=== PATIENT | female | born 1970 | race Caucasian/White ===

== ENCOUNTER 2017-09-09 12:49 | Emergency (ER) | payer OTHER ==
[2017-09-09] MEDS ORDERED: ONDANSETRON 4 MG TAB.RAPDIS PO ONE (13:46)
[2017-09-09] MEDS ORDERED: HYDROMORPHONE HCL INJ/PF 2 MG/ML AMPULE IM ONE (13:46)
[2017-09-09] MEDS ORDERED: LIDOCAINE 1% INJ-PF (10 MG/ML) 30 ML SDV INJ ONE (13:51)
--- NOTE | 2017-09-09 13:58 | ER Document Report ---
ED Medical Screen (RME) - General Chief Complaint: Abscess Stated Complaint: BOIL Time Seen by Provider: 09/09/17 13:41 Mode of Arrival: Ambulatory Information source: Patient TRAVEL OUTSIDE OF THE [place] IN LAST 30 DAYS: No - HPI Patient complains to provider of: abscess Notes: 09/09/17 13:56 Patient is here with complaint of abscess to the left buttocks. She was seen in urgent care yesterday and was determined that he did not need drained at that time. She was placed on clindamycin. She did warm soaks yesterday. She went back to the urgent care today and it has gotten larger and more painful so they sent her to the emergency department. She states that she had a fever yesterday, but denies any fever today. Physical exam: Large fluctuant abscess with redness to the left buttock. No rectal involvement. Tenderness to palpation. No drainage. An initial examination was made on the patient as part of the triage process, and it was determined a more comprehensive evaluation was necessary. Initial labs were ordered and patient was transferred to another provider in the ED who assumed care and finished evaluation and plan. - Related Data Allergies/Adverse Reactions: No Known Allergies Allergy (Verified 09/09/17 12:55) Physical Exam - Vital signs Vitals: Temp Pulse Resp BP Pulse Ox 98.1 F 102 H 24 H 129/85 H 98 09/09/17 12:53 09/09/17 12:53 09/09/17 12:53 09/09/17 12:53 09/09/17 12:53 Course - Vital Signs Vital signs: Temp Pulse Resp BP Pulse Ox 98.1 F 102 H 24 H 129/85 H 98 09/09/17 12:53 09/09/17 12:53 09/09/17 12:53 09/09/17 12:53 09/09/17 12:53
--- NOTE | 2017-09-09 14:40 | ER Document Report ---
HPI - HPI Pain Level: 4 Notes: Patient is a 47-year-old female no significant past medical history who presents to the ED complaining of an abscess to her left buttock 4 days. Patient states that she was at the urgent care initially and they placed her on antibiotics, and when again today as it doubled in size and was told to come the emergency department for incision and drainage. She denies any drug allergies or history of MRSA. She is currently on clindamycin. She is eating and drinking without difficulties. She is urinating normally and having normal bowel moods. No other concerns or complaints at this time. She has not noticed any streaks or purulent discharge. Denies any headache, fever, neck pain, URI, sore throat, chest pain, palpitations, syncope, cough, shortness of breath, wheeze, dyspnea, abdominal pain, nausea/vomiting/diarrhea, urinary retention, dysuria, hematuria, or rash. - ROS Systems Reviewed and Negative: Yes All other systems reviewed and negative Past Medical History - General Information source: Patient - Social History Smoking Status: Current Every Day Smoker Family History: Reviewed & Not Pertinent Patient has suicidal ideation: No Patient has homicidal ideation: No Renal/ Medical History: Denies: Hx Peritoneal Dialysis Vertical Provider Document - CONSTITUTIONAL Agree With Documented VS: Yes Notes: PHYSICAL EXAMINATION: LUNGS: Breath sounds clear to auscultation bilaterally and equal. No wheezes rales or rhonchi. HEART: Regular rate and rhythm without murmurs, rubs, gallops. ABDOMEN: Soft, nontender, nondistended abdomen. No guarding, no rebound. No masses appreciated. Normal bowel sounds present. No CVA tenderness bilaterally. Buttock: + abscess with fluctuance left buttock 12-14x7cm does not involve the anus/rectum. No streaks or purulent discharge. + tenderness. Extremities: No cyanosis, clubbing, or edema b/l. Peripheral pulses 2+. Capillary refill less than 3 seconds. PSYCH: Normal mood, normal affect. SKIN: Warm, Dry, normal turgor, no rashes or lesions noted. - INFECTION CONTROL TRAVEL OUTSIDE OF THE [place] IN LAST 30 DAYS: No Course - Re-evaluation Re-evalutation: 09/09/17 15:24 Patient is an afebrile, well-hydrated, 39-year-old female who presents to the ED with an abscess to the left buttock. Vitals are acceptable. PE is otherwise unremarkable. Incision and drainage was performed successfully without any complications. Packing was placed. Patient tolerated procedure well without any complications. Patient has no significant tachycardia, tachypnea, or hypoxia. She is currently on clindamycin. Wound culture was obtained. Wound dressing was placed and wound instructions reviewed. Recheck with PCM in 2-3 days. Return to the ED with any worsening/concerning symptoms otherwise as reviewed discharge. Patient is in agreement. - Vital Signs Vital signs: Temp Pulse Resp BP Pulse Ox 98.1 F 102 H 24 H 129/85 H 98 09/09/17 12:53 09/09/17 12:53 09/09/17 12:53 09/09/17 12:53 09/09/17 12:53 Procedures - Incision and Drainage Left Buttock Time completed: 13:10 - pt tolerated proc well, no complications Type: Simple Anesthetic type: 1% Lidocaine mL's of anesthetic: 18 Blade size: 11 I&D procedure: Iodoform packing placed, Sterile dressing applied, Other - chlorhexadine Incision Method: Incision made by scalpel Amount/type of drainage: copious purulent Discharge - Discharge Clinical Impression: Abscess Condition: Stable Disposition: HOME, SELF-CARE Instructions: Abscess ([facility]), Post Incision and Drainage Additional Instructions: Do not shower or bathe for 24 hours. After 24 hours she may shower but no submersion of the wound under water. Keep the original dressing on the wound for 24 hours unless the drainage soaks through. Change the dressing daily thereafter and use a small amount of triple antibiotic ointment over the open wound. Return to the ED and/or your PCM in 2-3 days for recheck and continue direction for wound packing. Monitor for any signs of worsening pain or redness , streaks, and/or fever. Return to the ED if noticing any of the above symptoms or as needed. Take medications as directed. Forms: Elevated Blood Pressure, Smoking Cessation Education, Return to Work Referrals: LUCIANA SHEFFIELD, CHRISTELLE-C [Primary Care Provider] - 09/12/17
[2017-09-09 15:21] VITALS: BP 143/86
== END 2017-09-09 15:35 | disposition home or self-care (01) ==
LOC: ER 12:49
PROC: 0H98XZZ Drainage of Buttock Skin, External Approach (ICD-10-PCS; principal; 2017-09-09)
DX: L02.31 Cutaneous abscess of buttock (principal); F17.200 Nicotine dependence, unspecified, uncomplicated
CPT/HCPCS: 99283; 96372; 87070; 87205; 87075; 87077; 10060; S0119; J3490; J1170

== ENCOUNTER 2018-06-19 17:08 | Emergency (ER) | payer MEDICAID, OTHER ==
[2018-06-19] MEDS ORDERED: RINGERS SOLUTION,LACTATED 1,000 ML IV ONE (17:49)
[2018-06-19] MEDS ORDERED: DIPHENHYDRAMINE HCL 50 MG/ML VIAL IV ONE (17:49)
[2018-06-19] MEDS ORDERED: METOCLOPRAMIDE HCL INJ/PF 10 MG/2 ML SDV IV ONE (17:49)
--- NOTE | 2018-06-19 17:51 | ER Document Report ---
ED Medical Screen (RME) - General Chief Complaint: Near Syncope Stated Complaint: VOMITING Time Seen by Provider: 06/19/18 17:45 Primary Care Provider: LUCIANA SHEFFIELD FNP-C [Primary Care Provider] - Follow up as needed Mode of Arrival: Medic Information source: Patient Notes: This is a 47-year-old female brought in by EMS after near syncopal episode at work. Patient reported having multiple episodes of vomiting associated with nausea. Patient denies fever but states she has had cough, congestion for the past week. Patient is not on any medicines and has no medical problems. History of C-sections. She has no primary care provider. No allergies to medicines. Patient states she still feels nauseated but stopped vomiting after given Zofran by EMS. TRAVEL OUTSIDE OF THE [place] IN LAST 30 DAYS: No - Related Data Allergies/Adverse Reactions: No Known Allergies Allergy (Verified 09/09/17 12:55) Past Medical History Renal/ Medical History: Denies: Hx Peritoneal Dialysis Physical Exam - Vital signs Vitals: Temp Pulse Resp BP Pulse Ox 98.3 F 80 17 103/73 95 06/19/18 17:32 06/19/18 17:32 06/19/18 17:32 06/19/18 17:32 06/19/18 17:32 Course - Vital Signs Vital signs: Temp Pulse Resp BP Pulse Ox 98.3 F 80 17 103/73 95 06/19/18 17:32 06/19/18 17:32 06/19/18 17:32 06/19/18 17:32 06/19/18 17:32 Doctor's Discharge - Discharge Referrals: LUCIANA SHEFFIELD FNP-C [Primary Care Provider] - Follow up as needed
[2018-06-19 18:17] LABS: ABSOLUTE BASOPHILS # (AUTO) 0.1 10^3/uL (0.0-0.2); ABSOLUTE EOSINOPHILS # (AUTO) 0.1 10^3/uL (0.0-0.6); ABSOLUTE LYMPHOCYTES (AUTO) 1.6 10^3/uL (0.5-4.7); ABSOLUTE MONOCYTES (AUTO) 0.7 10^3/uL (0.1-1.4); ABSOLUTE NEUT (AUTO) 8.7 10^3/uL (1.7-8.2); BASOPHILS % (AUTO) 0.8 % (0-2); EOSINOPHILS % (AUTO) 0.6 % (0-6); HEMATOCRIT 41.1 % (36.0-47.0); HEMOGLOBIN 13.4 g/dL (12.0-15.5); LYMPHOCYTES % (AUTO) 14.5 % (13-45); MEAN CORPUSCULAR HEMOGLOBIN 26.7 pg (27.0-33.4); MEAN CORPUSCULAR HGB CONC 32.6 g/dL (32.0-36.0); MEAN CORPUSCULAR VOLUME 82 fl (80-97); PLATELET COUNT 211 10^3/uL (150-450); RED BLOOD COUNT 5.03 10^6/uL (3.72-5.28); RED CELL DISTRIBUTION WIDTH 16.8 % (11.5-14.0); SEGMENTED NEUTROPHILS % (AUTO) 78.1 % (42-78); TOTAL CELLS COUNTED % (AUTO) 100 %; WHITE BLOOD COUNT 11.2 10^3/uL (4.0-10.5)
[2018-06-19 18:45] LABS: ALANINE AMINOTRANSFERASE 13 U/L (9-52); ALKALINE PHOSPHATASE 96 U/L (38-126); ANION GAP 11 (5-19); ASPARTATE AMINO TRANSFERASE 46 U/L (14-36); BILIRUBIN,DIRECT 0.3 mg/dL (0.0-0.4); BILIRUBIN,TOTAL 0.4 mg/dL (0.2-1.3); BLOOD UREA NITROGEN 16 mg/dL (7-20); CALCIUM 8.6 mg/dL (8.4-10.2); CARBON DIOXIDE 20 mmol/L (22-30); CHLORIDE 108 mmol/L (98-107); GLUCOSE 112 mg/dL (75-110); POTASSIUM 3.8 mmol/L (3.6-5.0); SODIUM 138.8 mmol/L (137-145); TOTAL PROTEIN 6.9 g/dL (6.3-8.2)
[2018-06-19 19:25] LABS: A TYPE INFLUENZA AG NEGATIVE (NEGATIVE); B INFLUENZA AG NEGATIVE (NEGATIVE)
--- NOTE | 2018-06-19 19:44 | ER Document Report ---
ED General - General Chief Complaint: Near Syncope Stated Complaint: VOMITING Time Seen by Provider: 06/19/18 17:45 Primary Care Provider: LUCIANA SHEFFIELD FNP-C [Primary Care Provider] - Follow up as needed Mode of Arrival: Medic Notes: Patient is a 47-year-old female who presents emergency department with a chief complaint of vomiting, dizziness, and an almost syncopal episode at work. She states that she vomited 4 times. She was brought in by ambulance and she was given 4 mg of Zofran and a lactated Ringer's bolus. She states that she has been having cold symptoms for the past few days and she took some DayQuil before going to work. 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 She denies any abdominal pain, diarrhea, chest pain, or any other symptoms at this time. TRAVEL OUTSIDE OF THE [place] IN LAST 30 DAYS: No - Related Data Allergies/Adverse Reactions: No Known Allergies Allergy (Verified 09/09/17 12:55) Past Medical History - General Information source: Patient - Social History Smoking Status: Unknown if Ever Smoked Family History: Reviewed & Not Pertinent Patient has suicidal ideation: No Patient has homicidal ideation: No Renal/ Medical History: Denies: Hx Peritoneal Dialysis Review of Systems - Review of Systems Notes: REVIEW OF SYSTEMS: CONSTITUTIONAL : Denies recent illness. Denies recent unintentional weight loss. Denies fever, chills, or sweats. EENT: See HPI. CARDIOVASCULAR: Denies chest pain. RESPIRATORY: Denies shortness of breath, cough, congestion, difficulty breathing, or wheezing. GASTROINTESTINAL: See HPI. GENITOURINARY: Denies difficulty urinating, burning, blood in urine, urgency or frequency. MUSCULOSKELETAL: Denies neck and back pain. Denies joint pain or swelling. SKIN: Denies rash, itchiness, or lesions HEMATOLOGIC : Denies easy bruising or bleeding. LYMPHATIC: Denies swollen, painful, enlarged glands. NEUROLOGICAL: See HPI. PSYCHIATRIC: Denies stress, anxiety, alteration in sleep patterns, or depression. All other systems reviewed and negative. Physical Exam - Vital signs Vitals: Temp Pulse Resp BP Pulse Ox 98.3 F 80 17 103/73 95 06/19/18 17:32 06/19/18 17:32 06/19/18 17:32 06/19/18 17:32 06/19/18 17:32 - Notes Notes: PHYSICAL EXAMINATION: GENERAL: Appears well, healthy, well-nourished, no acute distress. HEAD: Normocephalic, atraumatic. EYES: PERRL, conjunctiva normal, all extraocular movements intact, sclera nonicteric ENT: Dry mucous membranes. NECK: Supple, no noticeable swelling, redness, rash. Normal range of motion. LUNGS: Equal breath sounds bilaterally and clear to auscultation. No wheezes rales or rhonchi. CARDIOVASCULAR: S1-S2, regular rate, regular rhythm. Radial pulses 2+, normal. ABDOMEN: Normoactive bowel sounds. Soft, nontender, no guarding, no rebound tenderness, and no masses palpated. EXTREMITIES: Normal strength and range of motion, no pitting or edema. No cyanosis. NEUROLOGICAL: Moves all extremities upon command. Strength 5/5 in all extremities. PSYCH: Normal mood, normal affect. SKIN: Warm, dry. No rash, lesions, ulcerations noted. Normal skin turgor. Course - Re-evaluation Re-evalutation: Patient states she feels better after receiving fluids and her antiemetic medications. I suspect she had some dizziness from being dehydrated, as she does feel better after receiving fluids. I have a very low suspicion for an acute AK, bowel obstruction, GI bleed or any other life threatening etiology at this time. Verbal discharge instructions were given to the patient. They verbalized understanding. They are stable for discharge. - Vital Signs Vital signs: Temp Pulse Resp BP Pulse Ox 97.5 F 69 18 117/63 99 06/19/18 19:58 06/19/18 19:58 06/19/18 19:58 06/19/18 19:58 06/19/18 19:58 - Laboratory Result Diagrams: 06/19/18 18:06 06/19/18 18:06 Laboratory results interpreted by me: 06/19/18 06/19/18 18:06 18:06 WBC 11.2 H MCH 26.7 L RDW 16.8 H Seg Neutrophils % 78.1 H Absolute Neutrophils 8.7 H Chloride 108 H Carbon Dioxide 20 L Glucose 112 H AST 46 H Discharge - Discharge Clinical Impression: Upper respiratory infection Qualifiers: URI type: unspecified URI Qualified Code(s): J06.9 - Acute upper respiratory infection, unspecified Vomiting Qualifiers: Vomiting type: unspecified Vomiting Intractability: non-intractable Nausea presence: with nausea Qualified Code(s): R11.2 - Nausea with vomiting, unspecified Condition: Stable Disposition: HOME, SELF-CARE Instructions: Upper Respiratory Illness ([facility]), Viral Syndrome ([facility]) Additional Instructions: You were seen today in the emergency department for vomiting and dizziness. Your symptoms are most likely due to an upper respiratory infection. You have been given Flonase, steroids to help with the inflammation in your nose. Please place 1 spray to each nostril twice a day. Also, take Zyrtec daily, a medication to help with your runny nose. You have also been given Zofran, medication to help with nausea and vomiting. You may take 1 tablet every 4-6 hours as needed. If you develop shortness of breath, difficulty breathing, or have any symptoms that are worrisome to you, please return to the emergency department. Prescriptions: Cetirizine HCl [Zyrtec 10 mg Tablet] 1 tab PO DAILY #30 tablet Fluticasone Propionate [Flonase Nasal Roosevelt 50 Mcg/Roosevelt 16 gm] 1 spray NASL Q12 #1 inhaler Referrals: LUCIANA SHEFFIELD FNP-C [Primary Care Provider] - Follow up as needed
[2018-06-19] MEDS ORDERED: ONDANSETRON ODT 4 MG TAB (6 TAB/ER DISP) PO PRN (19:46)
[2018-06-19 20:00] VITALS: BP 117/63
== END 2018-06-19 20:01 | disposition home or self-care (01) ==
LOC: ER 17:08
DX: R11.2 Nausea with vomiting, unspecified (principal); J06.9 Acute upper respiratory infection, unspecified; R55 Syncope and collapse
CPT/HCPCS: 99284; 96361; 96374; 96375; 36415; 85025; 80053; 87804; J1200; J2765; J7120

== ENCOUNTER 2018-08-13 12:36 | Emergency (ER) | payer MEDICAID ==
[2018-08-13] MEDS ORDERED: IBUPROFEN 800 MG TABLET PO ONE (13:11)
[2018-08-13] MEDS ORDERED: AMOXICILLIN TRIHYDRATE 500 MG CAPSULE PO ONE (13:11)
--- NOTE | 2018-08-13 13:13 | ER Document Report ---
HPI - HPI Patient complains to provider of: Right ear pain Time Seen by Provider: 08/13/18 13:04 Onset/Duration: Persistent Quality of pain: Achy Pain Level: 4 Context: Patient presents complaining of right ear pain for the past 3 days. Patient denies any fever or drainage from the ear. Patient states that she will frequently get ear infections and suspects the same today. Associated Symptoms: Earache, Sore throat. denies: Nonproductive cough, Fever Exacerbated by: Denies Relieved by: Denies Similar symptoms previously: Yes Recently seen / treated by doctor: No - ROS ROS below otherwise negative: Yes Systems Reviewed and Negative: Yes All other systems reviewed and negative - CONSTITUTIONAL Constitutional: DENIES: Fever - EENT EENT: REPORTS: Sore Throat, Ear Pain - CARDIOVASCULAR Cardiovascular: DENIES: Chest pain - RESPIRATORY Respiratory: DENIES: Trouble Breathing, Coughing - GASTROINTESTINAL Gastrointestinal: DENIES: Nausea, Patient vomiting, Diarrhea - REPRODUCTIVE Reproductive: DENIES: : - MUSCULOSKELETAL Musculoskeletal: DENIES: Back Pain, Neck Pain - DERM Skin Color: Normal Skin Problems: None Past Medical History - General Information source: Patient - Social History Smoking Status: Current Every Day Smoker Smoking Education Provided: Yes Frequency of alcohol use: None Drug Abuse: None Occupation: retail Family History: Reviewed & Not Pertinent - Medical History Medical History: Negative Renal/ Medical History: Denies: Hx Peritoneal Dialysis Past Surgical History: Reports: Hx Section Vertical Provider Document - CONSTITUTIONAL Agree With Documented VS: Yes Exam Limitations: No Limitations General Appearance: WD/WN, No Apparent Distress - INFECTION CONTROL TRAVEL OUTSIDE OF THE [place] IN LAST 30 DAYS: No - HEENT HEENT: Atraumatic, Normocephalic, Pharyngeal Tenderness, Pharyngeal Erythema, Tympanic Membrane Red, Tympanic Membrane Bulging - purulent effusion r ear. negative: Pharyngeal Exudate - NECK Neck: Normal Inspection, Supple. negative: Lymphadenopathy-Left, Lymphadenopathy-Right - RESPIRATORY Respiratory: Breath Sounds Normal, No Respiratory Distress - CARDIOVASCULAR Cardiovascular: Regular Rate, Regular Rhythm - BACK Back: Normal Inspection - MUSCULOSKELETAL/EXTREMETIES Musculoskeletal/Extremeties: MAEW - NEURO Level of Consciousness: Awake, Alert, Appropriate Motor/Sensory: No Motor Deficit - DERM Integumentary: Warm, Dry, No Rash Course - Re-evaluation Re-evalutation: 08/13/18 Patient with right acute otitis media. Patient has not been on any recent antibiotics. Will start patient on amoxicillin. Good return precautions discussed. Discharge - Discharge Clinical Impression: Otitis media Qualifiers: Otitis media type: suppurative Chronicity: acute Laterality: right Recurrence: not specified as recurrent Spontaneous tympanic membrane rupture: without spontaneous rupture Qualified Code(s): H66.001 - Acute suppurative otitis media without spontaneous rupture of ear drum, right ear Condition: Stable Disposition: HOME, SELF-CARE Instructions: Amoxicillin ([facility]), Otitis Media ([facility]) Additional Instructions: Return immediately for any new or worsening symptoms Followup with your primary care provider, call tomorrow to make a followup appointment Prescriptions: Amoxicillin 500 mg PO TID #30 tablet Naproxen [Naprosyn 250 Nmg Tablet] 1 tab PO BID #14 tablet Forms: Return to Work Referrals: LUCIANA SHEFFIELD FNP-C [Primary Care Provider] - Follow up as needed
== END 2018-08-13 13:27 | disposition home or self-care (01) ==
LOC: ER 12:36
DX: H66.001 Acute suppurative otitis media without spontaneous rupture of ear drum, right ear (principal); J02.9 Acute pharyngitis, unspecified; H92.01 Otalgia, right ear; F17.200 Nicotine dependence, unspecified, uncomplicated
CPT/HCPCS: 99282; J3490

== ENCOUNTER 2018-11-22 09:36 | Emergency (ER) | payer MEDICAID ==
--- NOTE | 2018-11-22 09:56 | ER Document Report ---
ED Medical Screen (RME) - General Chief Complaint: Abscess Stated Complaint: ABSCESS Time Seen by Provider: 11/22/18 09:52 Primary Care Provider: LUCIANA SHEFFIELD FNP-C [Primary Care Provider] - Follow up as needed TRAVEL OUTSIDE OF THE [place] IN LAST 30 DAYS: No - HPI Notes: 11/22/18 09:54 Patient is a 48-year-old female with a significant past medical history who presents complaining of an abscess to her medial proximal thigh that is been present for the past 3 days. Patient states that this started as a small estes that she popped. Patient states that she has needed an abscess cut open before on her buttock. Denies any history of MRSA or IV drug abuse. Denies drug allergies. Denies MARTIN, fever, neck pain, URI, CP, SOB, Abd pain, dysuria, back pain. I have treated and performed a rapid initial assessment of this patient. A comprehensive ED assessment and evaluation of the patient, analysis of test results and completion of medical decision making process will be conducted by additional ED providers. PHYSICAL EXAMINATION: GENERAL: Well-appearing, well-nourished and in no acute distress. A&Ox4. Answers questions appropriately. Left thigh: + erythemic fluctuant approx 2cm abscess noted with + tenderness. - Related Data Allergies/Adverse Reactions: No Known Allergies Allergy (Verified 11/22/18 09:37) Past Medical History Renal/ Medical History: Denies: Hx Peritoneal Dialysis Past Surgical History: Reports: Hx Section Physical Exam - Vital signs Vitals: Temp Pulse Resp BP Pulse Ox 98.6 F 85 18 133/70 H 100 11/22/18 09:40 11/22/18 09:40 11/22/18 09:40 11/22/18 09:40 11/22/18 09:40 Course - Vital Signs Vital signs: Temp Pulse Resp BP Pulse Ox 98.6 F 85 18 133/70 H 100 11/22/18 09:40 11/22/18 09:40 11/22/18 09:40 11/22/18 09:40 11/22/18 09:40 Doctor's Discharge - Discharge Referrals: LUCIANA SHEFFIELD FNP-C [Primary Care Provider] - Follow up as needed
[2018-11-22] MEDS ORDERED: LIDOCAINE 1% INJ-PF (10 MG/ML) 30 ML SDV INJ ONE (11:28)
[2018-11-22] MEDS ORDERED: ONDANSETRON 4 MG TAB.RAPDIS PO ONE (11:28)
[2018-11-22] MEDS ORDERED: OXYCODONE-ACETAMINOPHEN 5-325 MG TABLET PO ONE (11:28)
[2018-11-22] MEDS ORDERED: SULFAMETHOXAZOLE/TRIMETHOPRIM 800-160 MG TABLET PO ONE (11:29)
[2018-11-22 12:41] VITALS: BP 101/68
--- NOTE | 2018-11-24 11:33 | ER Document Report ---
Entered by JANI CRUZ SCRIBE 11/22/18 1127 Acting as scribe for:DALY CONNOR MD ED Skin Rash/Insect Bite/Abscs - General Chief Complaint: Abscess Stated Complaint: ABSCESS Time Seen by Provider: 11/22/18 09:52 Primary Care Provider: LUCIANA SHEFFIELD FNP-C [COMMUNITY BASED STAFF] - Follow up as needed Mode of Arrival: Ambulatory Information source: Patient Notes: 48-year-old female patient with painful swelling to her left medial proximal thigh for 3 days. She states is similar to an abscess she had on her buttock opened in the past. There is no fever. TRAVEL OUTSIDE OF THE [place] IN LAST 30 DAYS: No - Related Data Allergies/Adverse Reactions: No Known Allergies Allergy (Verified 11/22/18 09:37) Past Medical History - Social History Smoking Status: Current Every Day Smoker Frequency of alcohol use: None Drug Abuse: None Family History: Reviewed & Not Pertinent Patient has suicidal ideation: No Patient has homicidal ideation: No Renal/ Medical History: Denies: Hx Peritoneal Dialysis Past Surgical History: Reports: Hx Section, Hx Tonsillectomy, Hx Tubal Ligation Physical Exam - Vital signs Vitals: Temp Pulse Resp BP Pulse Ox 98.6 F 85 18 133/70 H 100 11/22/18 09:40 11/22/18 09:40 11/22/18 09:40 11/22/18 09:40 11/22/18 09:40 Course - Vital Signs Vital signs: Temp Pulse Resp BP Pulse Ox 98.6 F 85 18 133/70 H 100 11/22/18 09:40 11/22/18 09:40 11/22/18 09:40 11/22/18 09:40 11/22/18 09:40 Procedures - Incision and Drainage Left Upper Thigh Time completed: 12:25 Type: Simple Anesthetic type: 1% Lidocaine mL's of anesthetic: 9 Blade size: 11 I&D procedure: Shurclens applied, Iodoform packing placed Incision Method: Incision made by scalpel Amount/type of drainage: 2 mL's of pus with some necrotic fat Notes: 11/22/18 12:30 Abscess incised with prompt flow of pus. Wound irrigated with 40 mils normal saline. Wound probed with mosquito clamp to break up any loculations. Quarter inch iodoform gauze used to pack the wound. Discharge - Discharge Clinical Impression: Abscess Condition: Stable Disposition: HOME, SELF-CARE Additional Instructions: Abscess You have an abscess (boil). This a pus-forming infection, usually due to staph. Some boils may be left to drain on their own, but most require lancing. From the time the tender lump first appears, it may be three or four days before the abscess is ready to ellie. Local heat and rest help at this stage of treatment. An antibiotic may prevent spread of the infection. Once the abscess is opened, packing may be placed into it. This is done so pus is not sealed inside by premature closure of the cavity. The packing will be removed at your follow-up visit or you may be advised to remove it yourself at home. Sometimes this packing must be replaced a few times during healing. The wound will heal with surprisingly little scar. Depending on the size and location of an abscess, healing can take one to four weeks. You may shower and wash the area around the incision site two or three times a day. Antibiotics may be prescribed, but are usually not necessary after an abscess has been drained. If you develop fever, chilling, worsening pain, or increasing swelling in the area, call the doctor or return immediately. Take medications as prescribed. Take Tylenol and ibuprofen or Aleve for pain as needed. Remove the gauze packing in 1 to 2 days. Keep the wound open by probing it with a Q-tip dipped in peroxide several times daily to prevent the skin wound from closing. Follow-up with your primary care provider if not improving. RETURN TO THE EMERGENCY ROOM IF ANY NEW OR WORSENING SYMPTOMS. Prescriptions: Sulfamethoxazole/Trimethoprim [Bactrim Ds Tablet] 2 tab PO BID #28 tablet Forms: Return to Work Referrals: YOHANNES,LUCIANA B, DIRECT SALES PROFESSIONAL-C [COMMUNITY BASED STAFF] - Follow up as needed Scribe Attestation: 11/22/18 11:30 I personally performed the services described in the documentation, reviewed and edited the documentation which was dictated to the scribe in my presence, and it accurately records my words and actions. I personally performed the services described in the documentation, reviewed and edited the documentation which was dictated to the scribe in my presence, and it accurately records my words and actions.
== END 2018-11-22 12:41 | disposition home or self-care (01) ==
LOC: ER 09:36
DX: L02.415 Cutaneous abscess of right lower limb (principal); F17.200 Nicotine dependence, unspecified, uncomplicated
CPT/HCPCS: 99283; 87070; 87075; 10060; S0119; J3490; 87077

== ENCOUNTER 2018-11-28 12:16 | Emergency (ER) | payer MEDICAID ==
[2018-11-28] MEDS ORDERED: EPINEPHRINE INJ/PF 1 MG/1 ML AMPULE ONE (12:23)
[2018-11-28] MEDS ORDERED: DIPHENHYDRAMINE HCL 50 MG/ML VIAL ONE (12:23)
[2018-11-28] MEDS ORDERED: EPINEPHRINE INJ/PF 1 MG/1 ML AMPULE IM ONE (12:23)
[2018-11-28] MEDS ORDERED: METHYLPREDNISOLONE INJ 125 MG/2 ML SDV ONE (12:25)
[2018-11-28] MEDS ORDERED: FAMOTIDINE INJ/PF 20 MG/2 ML SDV IV ONE ×2 (12:25→12:28)
[2018-11-28] MEDS ORDERED: DIPHENHYDRAMINE HCL 50 MG/ML VIAL IV ONE (12:27)
[2018-11-28] MEDS ORDERED: METHYLPREDNISOLONE INJ 125 MG/2 ML SDV IV ONE (12:28)
--- NOTE | 2018-11-28 12:30 | ER Document Report ---
ED Allergic Reaction - General Chief Complaint: Allergic Reaction Stated Complaint: POSSIBLE ALLERGIC REACTION Time Seen by Provider: 11/28/18 12:28 Mode of Arrival: Ambulatory Information source: Patient Notes: HPI: Patient is a 48-year-old female that was seen on Friday secondary to an abscess on the left upper inner thigh that was lanced secondary to what she believes is an allergic reaction. Patient started taking Bactrim after the visit. She states she started to develop a rash 2 days ago but continue to take the medications. She states that she feels some nausea with some coughing and "tickling feeling". She denies any fevers, extension of the rash or lesion, vomiting, shortness of breath, or abdominal pain. ROS: See HPI All other review of systems reviewed and otherwise negative Reviewed vital signs and nursing note as charted by RN. PHYSICAL EXAM: CONSTITUTIONAL: Patient does appear to be in distress being rushed back emergently to bed 9 secondary to a possible anaphylactic reaction. Patient is retching into a vomitus bag HEAD: Normocephalic; atraumatic EYES: PERRL; Conjunctivae clear, sclerae non-icteric ENT: Normal nose; no rhinorrhea; moist mucous membranes; patient has no lip, tongue, or posterior pharyngeal swelling or erythema NECK: Supple without meningismus; non-tender; no cervical lymphadenopathy, no masses CARD: Regular rate and rhythm; no murmurs; symmetric distal pulses RESP: Normal chest excursion without splinting or tachypnea; breath sounds clear and equal bilaterally; no wheezes, no stridor ABD/GI: Normal bowel sounds; non-distended; soft, non-tender BACK: The back appears normal and is non-tender to palpation EXT: Normal ROM in all joints; non-tender to palpation; no edema SKIN: Hives to the upper extremities and trunk NEURO: CN 2-12 intact; 5/5 bilateral upper and lower extremity strength with sensation intact to light touch PSYCH: The patient's mood and manner are appropriate. Grooming and personal hygiene are appropriate. TRAVEL OUTSIDE OF THE [place] IN LAST 30 DAYS: No - Related Data Allergies/Adverse Reactions: ciprofloxacin [From Cipro] Allergy (Verified 11/28/18 12:32) Past Medical History - Social History Smoking Status: Unknown if Ever Smoked Family History: Reviewed & Not Pertinent Renal/ Medical History: Denies: Hx Peritoneal Dialysis Past Surgical History: Reports: Hx Section, Hx Tonsillectomy, Hx Tubal Ligation Course - Re-evaluation Re-evalutation: 11/28/18 12:30 Given the above history and physical, we placed the patient on the monitor and provided epinephrine, Solu-Medrol, Benadryl, and Pepcid. I do believe this is most likely an allergic type reaction to the Bactrim. Patient currently has no headache, neck pain, chest pain, abdominal pain, or focal weakness or numbness. Blanching hives scattered. 11/28/18 13:08 Patient is feeling much better. Resolution of the hives. Vital signs are stable. Still no lip, tongue, posterior pharyngeal swelling. Patient will be monitored until 4 hours after the epinephrine was provided to see if there is any rebound anaphylaxis. If not, patient will be discharged home with 3 days of steroids, and EpiPen prescription, instructions regarding Benadryl, starting the patient on doxycycline after discontinuing the Bactrim, with strict return prec autions and follow-up with the primary doctor. Critical Care Note - Critical Care Note Total time excluding time spent on procedures (mins): 35 Discharge - Discharge Clinical Impression: Anaphylaxis Qualifiers: Encounter type: initial encounter Qualified Code(s): T78.2XXA - Anaphylactic shock, unspecified, initial encounter Condition: Good Disposition: HOME, SELF-CARE Additional Instructions: Come back immediately with any return of rash, fevers, difficulty breathing or swallowing, lip, tongue, pharyngeal swelling, epigastric pain or nausea. Please take Benadryl every 6-8 hours as needed for itching. Please use the epinephrine pen only as indicated by injecting into the lateral aspect of 1 of your thighs. Please discontinue the Bactrim and start taking the doxycycline and follow-up with your primary care physician. Please take the doxycycline after eating to prevent gastric irritation, and please stay out of the sun until completed treatment. Prescriptions: Doxycycline Hyclate 100 mg PO BID #20 capsule Epinephrine [Epipen] 0.3 mg IJ ASDIR PRN #1 auto.injct PRN Reason: Prednisone [Deltasone 20 mg Tablet] 3 tab PO DAILY 3 Days #9 tablet
[2018-11-28] MEDS ORDERED: DIPHENHYDRAMINE HCL 50 MG CAPSULE PO ONE (15:07)
[2018-11-28 16:36] VITALS: BP 133/91
== END 2018-11-28 16:36 | disposition home or self-care (01) ==
LOC: ER 12:16
DX: T78.2XXA Anaphylactic shock, unspecified, initial encounter (principal); L50.9 Urticaria, unspecified; L02.415 Cutaneous abscess of right lower limb; R05 Cough; R11.2 Nausea with vomiting, unspecified; Z88.1 Allergy status to other antibiotic agents
CPT/HCPCS: 99284; 96372; 96374; 96375; J3490; J1200; J0171; J2930; S0028

== ENCOUNTER 2019-01-16 23:06 | Emergency (ER) | payer MEDICAID ==
--- NOTE | 2019-01-17 01:26 | ER Document Report ---
ED Skin Rash/Insect Bite/Abscs - General Chief Complaint: Abscess Stated Complaint: SKIN PROBLEM Time Seen by Provider: 01/17/19 01:10 Mode of Arrival: Ambulatory Information source: Patient Notes: 48-year-old female to the left. She states she has had multiple abscesses in the past that have had to be I&D in the emergency room. She stated this abscess started about 4 days ago. She states it is very painful to sit on. She is alert oriented respirations regular and unlabored speaking in full sentences. TRAVEL OUTSIDE OF THE [place] IN LAST 30 DAYS: No - HPI Patient complains to provider of: Tender/swollen area Onset: Other - 3 to 4 days Onset/Duration: Gradual Quality of pain: Sharp Severity: Moderate Pain Level: 4 Skin Character: Abscess Quality of rash: Painful Identify cause: No Exacerbated by: Sitting, Walking Relieved by: Denies Similar symptoms previously: Yes Recently seen / treated by doctor: No - Related Data Allergies/Adverse Reactions: ciprofloxacin [From Cipro] Allergy (Verified 11/28/18 12:32) Past Medical History - General Information source: Patient - Social History Smoking Status: Current Every Day Smoker Cigarette use (# per day): Yes - ppd Smoking Education Provided: Yes - 4 minutes Frequency of alcohol use: None Drug Abuse: None Lives with: Family Family History: Reviewed & Not Pertinent Patient has suicidal ideation: No Patient has homicidal ideation: No - Past Medical History Cardiac Medical History: Reports: None Pulmonary Medical History: Reports: None EENT Medical History: Reports: None Neurological Medical History: Reports: None Endocrine Medical History: Reports: None Renal/ Medical History: Reports: None Malignancy Medical History: Reports: None GI Medical History: Reports: None Musculoskeletal Medical History: Reports None Skin Medical History: Reports Hx Cellulitis Psychiatric Medical History: Reports: None Traumatic Medical History: Reports: None Infectious Medical History: Reports: None Past Surgical History: Reports: Hx Section, Hx Tonsillectomy, Hx Tubal Ligation, Other - Abscess I&D did not surgery to the buttocks and hemorrhoidectomy - Immunizations Immunizations up to date: Yes Review of Systems - Review of Systems Constitutional: No symptoms reported EENT: No symptoms reported Cardiovascular: No symptoms reported Respiratory: No symptoms reported Gastrointestinal: No symptoms reported Genitourinary: No symptoms reported Female Genitourinary: No symptoms reported Musculoskeletal: No symptoms reported Skin: Other - Abscess right buttocks Hematologic/Lymphatic: No symptoms reported Neurological/Psychological: No symptoms reported -: Yes All other systems reviewed and negative Physical Exam - Vital signs Vitals: Temp Pulse BP Pulse Ox 98.8 F 100 128/80 H 96 01/16/19 23:12 01/16/19 23:12 01/16/19 23:12 01/16/19 23:12 Interpretation: Normal - General General appearance: Appears well, Alert - HEENT Head: Normocephalic, Atraumatic Eyes: Normal Pupils: PERRL - Respiratory Respiratory status: No respiratory distress Chest status: Nontender Breath sounds: Normal Chest palpation: Normal - Cardiovascular Rhythm: Regular Heart sounds: Normal auscultation Murmur: No - Abdominal Inspection: Normal Distension: No distension Bowel sounds: Normal Tenderness: Nontender Organomegaly: No organomegaly - Rectal Notes: Large abscess right buttocks - Back Back: Normal, Nontender - Extremities General upper extremity: Normal inspection, Nontender, Normal color, Normal ROM, Normal temperature General lower extremity: Normal inspection, Nontender, Normal color, Normal ROM, Normal temperature, Normal weight bearing. No: Angel's sign - Neurological Neuro grossly intact: Yes Cognition: Normal Orientation: AAOx4 Billie Coma Scale Eye Opening: Spontaneous [place] Coma Scale Verbal: Oriented [place] Coma Scale Motor: Obeys Commands [place] Coma Scale Total: 15 Speech: Normal Motor strength normal: LUE, RUE, LLE, RLE Sensory: Normal - Psychological Associated symptoms: Normal affect, Normal mood - Skin Skin Temperature: Warm Skin Moisture: Dry Skin Color: Normal Skin irregularity: Abscess Location of irregularity: Other - Right buttocks Irregularity with: Swelling, Tenderness, Warmth Course - Re-evaluation Re-evalutation: 01/17/19 01:41 Patient tolerated I&D well. See I&D note. Patient was started on doxycycline and given a prescription for doxycycline. Patient was encouraged to take frequent baths to soak this abscess. She was also encouraged to clean the tub but with bleach after each soaking. Patient states she gets these abscesses frequently and she soaks after each I&D. - Vital Signs Vital signs: Temp Pulse Resp BP Pulse Ox 98.8 F 100 128/80 H 96 01/16/19 23:12 01/16/19 23:12 01/16/19 23:12 01/16/19 23:12 Procedures - Incision and Drainage Right Buttock Time completed: 01:40 Type: Simple Anesthetic type: 1% Lidocaine mL's of anesthetic: 5 Blade size: 11 I&D procedure: Shurclens applied, Sterile dressing applied Incision Method: Incision made by scalpel Amount/type of drainage: very large amount purulent drainage Discharge - Discharge Clinical Impression: Abscess of right buttock Condition: Stable Disposition: HOME, SELF-CARE Instructions: Family Physicians / Practices Additional Instructions: ABSCESS: You have an abscess (boil). This a pus-forming infection, usually due to staph. Some boils may be left to drain on their own, but most require lancing. From the time the tender lump first appears, it may be three or four days before the abscess is ready to ellie. Local heat and rest help at this stage of treatment. An antibiotic may prevent spread of the infection. Once the abscess is opened, packing may be placed into it. This is done so pus is not sealed inside by premature closure of the cavity. The packing will be removed at your follow-up visit or you may be advised to remove it yourself at home. Sometimes this packing must be replaced a few times during healing. The wound will heal with surprisingly little scar. Depending on the size and location of an abscess, healing can take one to four weeks. You may shower and wash the area around the incision site two or three times a day. Antibiotics may be prescribed, but are usually not necessary after an abscess has been drained. If you develop fever, chills, worsening pain, or increasing swelling in the area, call the doctor or return immediately. POST INCISION AND DRAINAGE: You have had an incision made to allow drainage of an abscess. The incision must remain open so that pus and debris can drain from the wound. If the abscess cavity is large, packing is placed. This keeps the tissues from collapsing and trapping pus inside, while the body shrinks the cavity. The packing may need to be replaced every day or two. The physician will instruct you on the packing. Keep a bulky dressing over the area. Replace it if it becomes saturated with blood or pus. Do not disturb the packing (if present). You may shower and cleanse the area with gentle soap and warm water two or three times a day. Local warmth may be soothing, and may promote faster healing. Return if you develop high fever or chills, or if you note spreading redness, increasing swelling, or increasing tenderness. DOXYCYCLINE: Doxycycline (Vibramycin, Doryx) is an antibiotic of the tetracycline family. This type of drug is useful for infections of the respiratory tract and genital tract, and is sometimes used for intestinal infections. Unlike most tetracyclines, doxycycline can be taken with food. It is longer acting, and (usually) less prone to side effects than regular tetracycline. Tetracycline antibiotics can stain immature teeth and SHOULD NOT BE TAKEN BY CHILDREN, NURSING MOTHERS, OR WOMEN. Tetracyclines can make you more prone to sunburn. Abdominal cramping, nausea, and diarrhea are occasional side effects. Women may experience vaginal yeast infections. Call the doctor at once if you develop hives, itching, shortness of breath, or lightheadedness. FOLLOW-UP CARE: Most simple abscesses will not require a follow up visit. If you had packing placed in the abscess, remove it as instructed by the physician. If you have been referred to a physician for follow-up care, call the physicians office for an appointment as you were instructed or within the next two days. If you experience worsening or a significant change in your symptoms, return to the Emergency Department at any time for re-evaluation. Prescriptions: Doxycycline Hyclate 100 mg PO BID #20 capsule Forms: Elevated Blood Pressure, Smoking Cessation Education, Return to Work
[2019-01-17] MEDS ORDERED: HYDROCODONE/ACETAMINOPHEN 5-325 MG (6 TAB/ER DISP) PO PRN (01:39)
[2019-01-17] MEDS ORDERED: DOXYCYCLINE HYCLATE 100 MG TABLET PO ONE (01:51)
[2019-01-17 01:55] VITALS: BP 127/79
== END 2019-01-17 01:59 | disposition home or self-care (01) ==
LOC: ER 23:06
DX: L02.31 Cutaneous abscess of buttock (principal); F17.210 Nicotine dependence, cigarettes, uncomplicated; Z71.6 Tobacco abuse counseling; Z88.1 Allergy status to other antibiotic agents
CPT/HCPCS: 99283; 87070; 87205; 87075; 87077; 10060; J3490

== ENCOUNTER 2019-04-09 08:40 | Emergency (ER) | payer SELFPAY ==
[2019-04-09] MEDS ORDERED: GUAIFENESIN 600 MG TABLET.SA PO ONE (10:17)
[2019-04-09] MEDS ORDERED: NAPROXEN 250 MG TABLET PO ONE (10:17)
[2019-04-09] MEDS ORDERED: PSEUDOEPHEDRINE HCL 30 MG TABLET PO ONE (10:17)
[2019-04-09] MEDS ORDERED: LORATADINE 10 MG TABLET PO ONE (10:17)
--- NOTE | 2019-04-09 10:18 | ER Document Report ---
ED ENT - General Chief Complaint: Ear Pain Stated Complaint: EAR PAIN,SORE THROAT Time Seen by Provider: 04/09/19 10:13 Mode of Arrival: Ambulatory Information source: Patient Notes: 48-year-old female presents to ED for cough cold congestion ear pain to both ears. States she is been having the symptoms for about a week. She is slowing down on her smoking and is backed off to 5 cigarettes a day she is trying to quit. Patient is alert oriented respirations regular nonlabored speaking in full sentences lungs are clear to auscultation. There are no signs of otitis media to either ear TRAVEL OUTSIDE OF THE [place] IN LAST 30 DAYS: No - HPI Patient complains to provider of: Ear problem, Nose problem, Throat problem Onset: Last week Onset/Duration: Gradual Quality of pain: Achy, Sharp Severity: Moderate Pain Level: 3 Context: Recent Illness Location of pain: Ears, Nose, Sinus, Tooth Associated symptoms: Ear pain, Runny nose, Sinus pain, Sinus drainage Similar symptoms previously: Yes Recently seen / treated by doctor: No - Related Data Allergies/Adverse Reactions: ciprofloxacin [From Cipro] Allergy (Verified 11/28/18 12:32) Past Medical History - General Information source: Patient Last Menstrual Period: Just stopped yesterday - Social History Smoking Status: Current Every Day Smoker Cigarette use (# per day): Yes - 5 cig a day Chew tobacco use (# tins/day): No Frequency of alcohol use: None Drug Abuse: None Lives with: Family Family History: Reviewed & Not Pertinent Patient has suicidal ideation: No Patient has homicidal ideation: No - Past Medical History Cardiac Medical History: Reports: None Pulmonary Medical History: Reports: Hx Bronchitis EENT Medical History: Reports: None Neurological Medical History: Reports: None Endocrine Medical History: Reports: Hx Diabetes Mellitus Type 2 - Gestational Renal/ Medical History: Reports: None Malignancy Medical History: Reports: None GI Medical History: Reports: None Musculoskeletal Medical History: Reports None Psychiatric Medical History: Reports: None Traumatic Medical History: Reports: None Infectious Medical History: Reports: None Past Surgical History: Reports: Hx Adenoidectomy, Hx Section, Hx Tonsillectomy, Hx Tubal Ligation, Other - Abscess I&D did not surgery to the buttocks and hemorrhoidectomy - Immunizations Immunizations up to date: Yes Hx Diphtheria, Pertussis, Tetanus Vaccination: No - Due 2019 Review of Systems - Review of Systems Constitutional: No symptoms reported EENT: No symptoms reported Cardiovascular: No symptoms reported Respiratory: No symptoms reported Gastrointestinal: No symptoms reported Genitourinary: No symptoms reported Female Genitourinary: No symptoms reported Musculoskeletal: No symptoms reported Skin: No symptoms reported Hematologic/Lymphatic: No symptoms reported Neurological/Psychological: No symptoms reported -: Yes All other systems reviewed and negative Physical Exam - Vital signs Vitals: Temp Pulse Resp BP Pulse Ox 98.6 F 92 18 144/83 H 100 04/09/19 08:45 04/09/19 08:45 04/09/19 08:45 04/09/19 08:45 04/09/19 08:45 Interpretation: Normal - General General appearance: Appears well, Alert - HEENT Head: Normocephalic, Atraumatic Eyes: Normal Pupils: PERRL Ears: Normal External canal: Normal Tympanic membrane: Normal Sinus: Normal Nasal: Purulent discharge, Swelling Mouth/Lips: Normal Pharynx: Normal Neck: Normal - Respiratory Respiratory status: No respiratory distress Chest status: Nontender Breath sounds: Nonproductive cough Chest palpation: Normal - Cardiovascular Rhythm: Regular Heart sounds: Normal auscultation Murmur: No - Abdominal Inspection: Normal Distension: No distension Bowel sounds: Normal Tenderness: Nontender Organomegaly: No organomegaly - Back Back: Normal, Nontender - Extremities General upper extremity: Normal inspection, Nontender, Normal color, Normal ROM, Normal temperature General lower extremity: Normal inspection, Nontender, Normal color, Normal ROM, Normal temperature, Normal weight bearing. No: Angel's sign - Neurological Neuro grossly intact: Yes Cognition: Normal Orientation: AAOx4 Billie Coma Scale Eye Opening: Spontaneous [place] Coma Scale Verbal: Oriented [place] Coma Scale Motor: Obeys Commands [place] Coma Scale Total: 15 Speech: Normal Motor strength normal: LUE, RUE, LLE, RLE Sensory: Normal - Psychological Associated symptoms: Normal affect, Normal mood - Skin Skin Temperature: Warm Skin Moisture: Dry Skin Color: Normal Course - Re-evaluation Re-evalutation: 04/09/19 15:19 No signs or symptoms of a ear infection. Only signs and symptoms of an upper respiratory infection. After performing a Medical Screening Examination, I estimate there is LOW risk for ACUTE CORONARY SYNDROME, RESPIRATORY FAILURE, SEPSIS OR MENINGITIS, thus I consider the discharge disposition reasonable. I have reevaluated this patient multiple times and no significant life threatening changes are noted. The patient and I have discussed the diagnosis and risks, and we agree with discharging home with close follow-up. We also discussed returning to the Emergency Department immediately if new or worsening symptoms occur. We have discussed the symptoms which are most concerning (e.g., changing or worsening pain, trouble swallowing or breathing, neck stiffness, fever) that necessitate immediate return. - Vital Signs Vital signs: Temp Pulse Resp BP Pulse Ox 98.5 F 76 16 112/73 96 04/09/19 10:40 04/09/19 10:40 04/09/19 10:40 04/09/19 10:40 04/09/19 10:40 Discharge - Discharge Clinical Impression: Otalgia of both ears URI (upper respiratory infection) Qualifiers: URI type: unspecified viral URI Qualified Code(s): J06.9 - Acute upper respiratory infection, unspecified Disposition: HOME, SELF-CARE Additional Instructions: UPPER RESPIRATORY ILLNESS: You have a viral infection of the respiratory passages -- a "cold." This common infection causes nasal congestion, drainage, and often sore throat and cough. It is highly contagious. The disease usually lasts about 10 to 14 days. There is no "cure" for the viral infection -- it must run its course. If there is a complication, such as bacterial infection in the nose, sinuses, midd le ear, or bronchial tubes, antibiotics may be required. The antibiotics won't affect the virus. Drink plenty of fluids. A humidifier may help. An expectorant medication or decongestant may make you more comfortable. Use acetaminophen or ibuprofen for fever or aches. See the doctor if fever persists over two days, if there is any significant worsening of your symptoms, or if you simply fail to improve as expected. DECONGESTANT MEDICATION: A decongestant medicine has been suggested. Often this medicine is combined in the same tablet with an antihistamine or expectorant. This type of medicine is helpful in treating a bad cold or sinus condition, as well as in treatment of the nasal congestion of hay fever. It is not of much benefit for lung infections. Decongestant medicines are related to stimulants. They can cause an increase in blood pressure and heart rate. Persons with heart disease and high blood pressure should not take decongestants without discussing this with the physician. If you develop palpitations, chest pain, headache, or tremors, stop the medicine and consult your physician. You have been treated with Claritin 10 mg Sudafed 30 mg Mucinex 600 mg and naproxen 500 mg for your cough cold congestion and cold symptoms and headache. These are [id number] except for the naproxen you will have to take the Aleve [id number] or you can get a prescription for naproxen. The rest of the medications are [id number] you will have to ask the pharmacist for the Sudafed please get a little red pills. You can also use saline nasal spray to help clean your nose and Flonase nasal spray to help reduce the symptoms. Chloraseptic spray will help with your sore throat and salt and soda solution gargles will help to remove the postnasal drip from the back your throat decrease in your discomfort and cough. Salt and soda solution 1 quart of water 1 tablespoon of salt 1 teaspoon of baking soda Mixed 3 ingredients together and boil for 1 minute Placed in a covered quart jar Use 1/2 ounce of cold solution to gargle 3 times a day COUGH-SUPPRESSANT & EXPECTORANT MEDICATION: You are to use a cough medication as needed for relief of symptoms. This medicine is a combination of an expectorant (to make the mucous thinner and more easily "coughed up") and a cough suppressant (to reduce the frequency of coughing). The cough-suppressant medicine is related to narcotics. You may experience mild nausea and sleepiness. Some patients who are very sensitive to narcotics may have stomach pain from this medicine. Taking the medicine with food reduces these side effects. Do not drive or work with machinery until you know how this medicine affects you. The expectorant should have no side effects. Iodine-containing expectorants (such as organidin) should not be taken by persons with active thyroid disease unless approved by your doctor. Call the doctor if you develop shortness of breath, hives, rash, itching, lightheadedness, or severe nausea and vomiting. USE OF ACETAMINOPHEN (Tylenol): Acetaminophen may be taken for pain relief or fever control. It's much safer than aspirin, offering a wider range of "safe" dosages. It is safe during . Some brand names are Tylenol, Panadol, Datril, Anacin 3, Tempra, and Liquiprin. Acetaminophen can be repeated every four hours. The following are maximum recommended dosages: >89 pounds or adults 650 mg to 900 mg Acetaminophen can be repeated every four hours. Maximum dose not to exceed 4000 mg a day. SMOKING: If you smoke, you should stop smoking. The tar and chemicals in cigarette smoke are harmful. Smoking has been shown to cause: emphysema chronic bronchitis lung cancer mouth and throat cancer stomach and pancreas cancer premature aging defects In addition, smoking increases ear and lung infections in children of smokers. FOLLOW-UP CARE: If you have been referred to a physician for follow-up care, call the physicians office for an appointment as you were instructed or within the next two days. If you experience worsening or a significant change in your symptoms, notify the physician immediately or return to the Emergency Department at any time for re-evaluation. Forms: Elevated Blood Pressure, Smoking Cessation Education, Return to Work
[2019-04-09 10:40] VITALS: BP 112/73
== END 2019-04-09 10:43 | disposition home or self-care (01) ==
LOC: ER 08:40
DX: J06.9 Acute upper respiratory infection, unspecified (principal); H92.03 Otalgia, bilateral; F17.210 Nicotine dependence, cigarettes, uncomplicated; Z88.3 Allergy status to other anti-infective agents; Z98.51 Tubal ligation status
CPT/HCPCS: 99283

== ENCOUNTER 2019-10-23 20:27 | Emergency (ER) | payer OTHER ==
--- NOTE | 2019-10-23 21:18 | ER Document Report ---
ED Medical Screen (RME) - General Chief Complaint: Hand Injury Stated Complaint: RIGHT HAND INJURY Time Seen by Provider: 10/23/19 21:10 Notes: Patient is a 49-year-old female who presents emergency department with a chief complaint of right thumb and right wrist pain. Patient reports is been a gradual onset per the past 2 days. Patient states that there was no specific injury but she might of hit the base of her thumb on the bed the other day. Denies fall. Patient unable to bend the left thumb as this cause significant pain. TRAVEL OUTSIDE OF THE [place] IN LAST 30 DAYS: No - Related Data Allergies/Adverse Reactions: ciprofloxacin [From Cipro] Allergy (Verified 10/23/19 21:07) Past Medical History - Social History Frequency of alcohol use: None Drug Abuse: None Pulmonary Medical History: Reports: Hx Bronchitis Endocrine Medical History: Reports: Hx Diabetes Mellitus Type 2 - Gestational Renal/ Medical History: Denies: Hx Peritoneal Dialysis Skin Medical History: Reports Hx Cellulitis Past Surgical History: Reports: Hx Adenoidectomy, Hx Section, Hx Tonsillectomy, Hx Tubal Ligation, Other - Abscess I&D did not surgery to the buttocks and hemorrhoidectomy - Immunizations Immunizations up to date: Yes Hx Diphtheria, Pertussis, Tetanus Vaccination: No - Due 2019 Physical Exam - Vital signs Vitals: Temp Pulse Resp BP Pulse Ox 99.1 F 81 16 147/80 H 97 10/23/19 20:37 10/23/19 20:37 10/23/19 20:37 10/23/19 20:37 10/23/19 20:37 Course - Re-evaluation Re-evalutation: 10/23/19 21:18 Patient has diffuse tenderness to the dorsal aspect of the right hand specifically to the base of the thumb. Edema noted. - Vital Signs Vital signs: Temp Pulse Resp BP Pulse Ox 99.1 F 81 16 147/80 H 97 10/23/19 21:07 10/23/19 20:37 10/23/19 20:37 10/23/19 20:37 10/23/19 20:37
--- NOTE | 2019-10-23 21:59 | RADIOLOGY REPORT (SQ) ---
CLINICAL INDICATION: right hand swelling. . TECHNIQUE: 3 view(s) were obtained of the right wrist. COMPARISON: None. FINDINGS: No acute displaced fracture is identified of the wrist. Alignment appears anatomic. Joint spaces are within normal limits for age. Surrounding soft tissues are unremarkable. IMPRESSION: No evidence of acute displaced fracture of the wrist. Hand is dictated separately
--- NOTE | 2019-10-23 21:59 | RADIOLOGY REPORT (SQ) ---
CLINICAL INDICATION: right hand swelling. . TECHNIQUE: 3 view(s) were obtained of the right hand. COMPARISON: None. FINDINGS: No acute displaced fracture is identified of the hand. Alignment appears anatomic. Joint spaces are within normal limits for age. Soft tissue swelling. IMPRESSION: No evidence of acute bony injury to the hand.
[2019-10-23] MEDS ORDERED: OXYCODONE-ACETAMINOPHEN 5-325 MG TABLET PO ONE (23:36)
[2019-10-23] MEDS ORDERED: ONDANSETRON 4 MG TAB.RAPDIS PO ONE (23:36)
[2019-10-23] MEDS ORDERED: HYDROCODONE/ACETAMINOPHEN 5-325 MG (6 TAB/ER DISP) PO PRN (23:37)
--- NOTE | 2019-10-23 23:41 | ER Document Report ---
HPI - HPI Time Seen by Provider: 10/23/19 21:10 Pain Level: 5 Context: Patient is a 49-year-old female who comes emergency department for chief complaint of right thumb and right hand pain. She states that she has had worsening swelling and pain for the past 2 days. She states the pain became severe in her thumb to the point that she cannot flex or extend it, she states that she does believe that she hit the base of her thumb on her bed a couple days ago. She states it started with her thumb but now she is having some adjacent swelling and pain. She denies any other complaints, she denies redness, fever/chills, blood thinner use, history of diabetes, recent wounds nearby. She has never had surgery on the hand. She is right-handed. - CONSTITUTIONAL Constitutional: DENIES: Fever, Chills - REPRODUCTIVE Reproductive: DENIES: : Past Medical History - General Information source: Patient - Social History Smoking Status: Current Every Day Smoker Frequency of alcohol use: None Drug Abuse: None Lives with: Family Family History: Reviewed & Not Pertinent Patient has homicidal ideation: No Pulmonary Medical History: Reports: Hx Bronchitis Endocrine Medical History: Reports: Hx Diabetes Mellitus Type 2 - Gestational Renal/ Medical History: Denies: Hx Peritoneal Dialysis Skin Medical History: Reports Hx Cellulitis Past Surgical History: Reports: Hx Adenoidectomy, Hx Section, Hx Tonsillectomy, Hx Tubal Ligation, Other - Abscess I&D did not surgery to the buttocks and hemorrhoidectomy - Immunizations Immunizations up to date: Yes Hx Diphtheria, Pertussis, Tetanus Vaccination: No - Due 2020 Vertical Provider Document - CONSTITUTIONAL General Appearance: WD/WN, No Apparent Distress - INFECTION CONTROL TRAVEL OUTSIDE OF THE [place] IN LAST 30 DAYS: No - HEENT HEENT: Atraumatic, Normal ENT Exam, Normocephalic - NECK Neck: Normal Inspection - RESPIRATORY Respiratory: Breath Sounds Normal, No Respiratory Distress - CARDIOVASCULAR Cardiovascular: Regular Rate, Regular Rhythm - GI/ABDOMEN Gastrointestinal: Abdomen Soft, Abdomen Non-Tender. negative: Abdomen Tender - BACK Back: Normal Inspection - MUSCULOSKELETAL/EXTREMETIES Musculoskeletal/Extremeties: MAEW, FROM, Tender - There is pain over the first MCP of the right hand dorsally with some mild soft tissue swelling extending towards the right second MCP. Very tender performing flexion of the thumb. Capillary refill and sensation intact. Normal hand, wrist, forearm exam otherwise. No erythema, abnormal heat, wounds, induration, fluctuance noted. Course - Re-evaluation Re-evalutation: Patient has some soft tissue swelling at the base of the thumb and just adjacent to this spreading towards the second MCP joint. However all of the pain is located at the base of the thumb, patient with a lot of pain trying to perform flexion specifically, positive Jennifer test. Patient does not have any erythema, abnormal heat, or wounds to the area. Normal cap refill and sensation. No snuffbox tenderness. Unremarkable upper extremity exam otherwise. X-rays reviewed and are negative except for some soft tissue swelling. I suspect UCL injury based on the location and evaluation. Patient was placed in thumb spica, provided with instructions, orthopedic follow-up, discussed return precautions. Patient states understanding and agreement with plan. - Vital Signs Vital signs: Temp Pulse Resp BP Pulse Ox 99.1 F 81 16 147/80 H 97 10/23/19 21:07 10/23/19 20:37 10/23/19 20:37 10/23/19 20:37 10/23/19 20:37 Procedures - Immobilization right hand/forearm Pre-Proc Neuro Vasc Exam: Normal Immobilizer type: Thumb spica Performed by: PCT Post-Proc Neuro Vasc Exam: Normal Alignment checked and good: Yes Discharge - Discharge Clinical Impression: Pain of right thumb, Right hand pain Condition: Stable Disposition: HOME, SELF-CARE Additional Instructions: Your evaluation is most consistent with injury of the UCL ligament in your right thumb as we discussed. Wear the splint, take the anti-inflammatory as prescribed, you can take Tylenol 1000 mg every 6 hours if needed. You can substitute the Tylenol for the pain medication provided tonight only if needed. Please call the orthopedic referral on Friday for close follow-up and additional management of this. Return if you worsen including severe worsening swelling or pain, developing redness, fever, or any other concerning symptoms. Prescriptions: Naproxen [Naprosyn 375 Mg Tablet] 375 mg PO BID #14 tablet Forms: Return to Work Referrals: KELSEY GERMAN JR, [ACTIVE PROVISIONAL STAFF] - Follow up in 3-5 days
[2019-10-23 23:59] VITALS: BP 130/88
== END 2019-10-24 00:12 | disposition home or self-care (01) ==
LOC: ER 20:27
DX: M79.644 Pain in right finger(s) (principal); M79.641 Pain in right hand; M79.89 Other specified soft tissue disorders; F17.200 Nicotine dependence, unspecified, uncomplicated
CPT/HCPCS: 99283; 73130; 73110; 29125; S0119